=== PATIENT | female | born 1935 | race Caucasian/White ===

== ENCOUNTER → 2017-02-02 | Outpatient (CLI) | payer MEDICARE ==
--- NOTE | 2017-02-02 18:25 | US ---
EXAMINATION TYPE: US carotid duplex BILAT DATE OF EXAM: 02/02/2017 COMPARISON: 03/28/2015 CLINICAL HISTORY: I65.23 Occlusion and stenosis of bilateral carotid arteries. Falling EXAM MEASUREMENTS: RIGHT: Peak Systolic Velocity (PSV) cm/sec ----- Right CCA: 49.6 ----- Right ICA: 55.7 ----- Right ECA: 57.5 ICA/CCA ratio: 1.1 RIGHT: End Diastole cm/sec ----- Right CCA: 13.9 ----- Right ICA: 18.2 ----- Right ECA: 0 LEFT: Peak Systolic Velocity (PSV) cm/sec ----- Left CCA: 53.8 ----- Left ICA: 82.4 ----- Left ECA: 53.8 ICA/CCA ratio: 1.5 LEFT: End Diastole cm/sec ----- Left CCA: 13.1 ----- Left ICA: 25.2 ----- Left ECA: 10.9 VERTEBRALS (direction of flow): Right Vertebral: Antegrade Left Vertebral: Antegrade IMPRESSION: There is antegrade flow in the vertebral arteries. Even though elevated velocities were not seen there is evidence for significant plaque in probably 70% stenosis of the mid right internal carotid artery. There is at least 50% stenosis of the left internal carotid artery. There is signific ant plaque and shadowing and luminal evaluation is difficult. There is probably no change compared to old exam. If there is persistent clinical indication MR angiogram or CT angiogram is recommended. Criteria for Assigning % of Stenosis / Diameter reduction (Estimation based on the indirect measurements of the internal carotid artery velocities (ICA PSV). 1. Normal (no stenosis)=ICA PSV < 125 cm/s: ratio < 2.0: ICA EDV<40 cm/s. 2. Less than 50% stenosis=ICA PSV < 125 cm/s: ratio < 2.0: ICA EDV<40 cm/s. 3. 50 to 69% stenosis=ICA PSV of 125 to 230 cm/s: ration 2.0 ? 4.0: ICA EDV 40-100 cm/s. 4. Greater than 70% stenosis to near occlusion= ICA PSV > 230 cm/s: ratio > 4.0: ICA EDV > 100 cm/s. 5. Near occlusion= ICA PSV velocities may be low or undetectable: variable ratio and ICA EDV. 6. Total occlusion=unable to detect flow.
--- NOTE | 2017-02-03 11:18 | ECHOF ---
Referral Reason:I34.0 Nonrheumatic mitral regurgitation MEASUREMENTS -------- HEIGHT: 162.6 cm WEIGHT: 59.0 kg BP: 134/101 RVIDd: 3.1 cm (< 3.3) IVSd: 1.1 cm (0.6 - 1.1) LVIDd: 4.1 cm (3.9 - 5.3) LVPWd: 1.1 cm (0.6 - 1.1) EDV(Teich): 72 ml IVSs: 1.3 cm LVIDs: 2.7 cm LVPWs: 1.4 cm %IVS Thck: 19 % ESV(Teich): 27 ml EF(Teich): 63 % %FS: 34 % SV(Teich): 46 ml LALs A4C: 4.9 cm LAAs A4C: 14.7 cm LAESV A-L A4C: 37 ml LAESV MOD A4C: 41 ml LALs A2C: 5.1 cm LAAs A2C: 12.3 cm LAESV A-L A2C: 25 ml LAESV MOD A2C: 23 ml LAESV(A-L): 31 ml LAESV Index (A-L): 19.13 ml/m Ao Diam: 3.5 cm (2.0 - 3.7) AV Cusp: 1.4 cm (1.5 - 2.6) LA Diam: 3.6 cm (2.7 - 3.8) MV EXCURSION: 17.701 mm (> 18.000) MV EF SLOPE: 50 mm/s (70 - 150) EPSS: 0.9 cm MV E Parveen: 0.70 m/s MV DecT: 344 ms MV Dec Cache: 2.0 m/s MV A Parveen: 1.15 m/s MV E/A Ratio: 0.61 MV PHT: 100 ms E/E': 13.19 E': 0.05 m/s LVOT Vmax: 0.96 m/s LVOT maxP.72 mmHg AV Vmax: 1.13 m/s AV maxP.09 mmHg TR Vmax: 1.32 m/s TR maxP.95 mmHg RAP: 5.00 mmHg RVSP: 11.95 mmHg FINDINGS -------- Sinus rhythm. This was a technically adequate study. Overall left ventricular systolic function is normal with, an EF between 55 - 60 %. The right ventricle is normal in size and function. Normal LA size by volume 22+/-6 ml/m2. The right atrium is normal in size. Aortic valve is trileaflet and is mildly thickened. Trace amount of aortic regurgitation. There is no evidence of aortic stenosis. The mitral valve leaflets are mildly thickened. There is trace mitral regurgitation. Trace tricuspid regurgitation present. There is no evidence of pulmonary hypertension. The right ventricular systolic pressure, as measured by Doppler, is 11.95mmHg. The pulmonic valve was not well visualized. The aortic root size is normal. Normal inferior vena cava with normal inspiratory collapse consistent with estimated right atrial pressure of 5 mmHg. The pericardium is normal. There is no pericardial effusion. CONCLUSIONS -------- 1. Sinus rhythm. 2. There is no evidence of pulmonary hypertension. 3. The right ventricular systolic pressure, as measured by Doppler, is 11.95mmHg. 4. The pulmonic valve was not well visualized. 5. The aortic root size is normal. 6. There is no pericardial effusion. 7. This was a technically adequate study. 8. Overall left ventricular systolic function is normal with, an EF between 55 - 60 %. 9. Normal LA size by volume 22+/-6 ml/m2. 10. Aortic valve is trileaflet and is mildly thickened. 11. Trace amount of aortic regurgitation. 12. The mitral valve leaflets are mildly thickened. 13. There is trace mitral regurgitation. 14. Trace tricuspid regurgitation present. ENVIRONMENTAL ENGINEERING INTERN: Johnathan Simpson RDCS
== END | disposition home or self-care (01) ==
LOC: RADECHMAIN 16:51
PROVIDERS: ATTEND Internal Medicine
DX: I65.23 Occlusion and stenosis of bilateral carotid arteries (principal); I34.0 Nonrheumatic mitral (valve) insufficiency
CPT/HCPCS: 93306; 93880

== ENCOUNTER → 2017-03-19 | Outpatient (CLI) | payer MEDICARE ==
[2017-03-19 16:43] LABS: Blood Urea Nitrogen 13 mg/dL (7-17); Non-African American GFR(MDRD) >60 (>60 ml/min/1.73 sqM)
--- NOTE | 2017-03-19 18:35 | CT ---
EXAMINATION TYPE: CT angio neck DATE OF EXAM: 03/19/2017 HISTORY: Follow up US COMPARISON: NONE CT DLP: 485 mGycm. Automated Exposure Control for Dose Reduction was Utilized. TECHNIQUE: CTA scan of the neck is performed with IV Contrast, patient injected with 65 mL of Omnipa que 350, axial images are obtained, coronal and sagittal reformatted images are reviewed. Three-D rec onstructed images are created on an independent workstation and reviewed. FINDINGS: There are densely calcified mediastinal lymph nodes. There is normal branching pattern of the great v essels on the aortic arch. There is aneurysm of the ascending aorta measures 4.5 cm. There is no sign of dissection. There is arterial flow in both vertebral arteries. There is patency of the vertebrobasilar artery sys tem. There is moderate plaque at the carotid artery bifurcations. There is estimated lumen narrowing of 25 % at the origin right internal carotid artery. On the left side there is a short segment of significant stenosis of 75% lumen narrowing. There is bi lateral patency of the external carotid arteries. There is no evidence of pharyngeal mass. Epiglottis is normal. There is no evidence of arterial disse ction. CONCLUSION: 4.5 cm aneurysm of ascending aorta. Atherosclerotic vascular disease. 25% stenosis of the origin right internal carotid artery. 75% stenosis origin of the left internal carotid artery. Normal vertebral arteries.
== END | disposition home or self-care (01) ==
LOC: RADCTMAIN 16:06
PROVIDERS: ATTEND Internal Medicine Geriatric Medicine
DX: I65.23 Occlusion and stenosis of bilateral carotid arteries (principal); I71.2 Thoracic aortic aneurysm, without rupture; I70.90 Unspecified atherosclerosis
CPT/HCPCS: 82565; 84520; 70498; 36415; Q9967

== ENCOUNTER 2017-04-29 07:44 | Emergency (ER) | payer MEDICARE ==
[2017-04-29 07:59] VITALS: RESP 18
--- NOTE | 2017-04-29 08:04 | ED ---
Neuro HPI - General Stated Complaint: CVA Time Seen by Provider: 04/29/17 07:44 Source: EMS, RN notes reviewed, old records reviewed Mode of arrival: EMS - History of Present Illness Is the patient presenting with stroke symptoms?: Yes Initial Comments: Is an 81-year-old female who is brought in by EMS for evaluation after falling twice this morning apparently while trying on the bathroom. Apparently staff help her the first I do not see any deficits this time when she was helped up and noticed some facial drooping and some left arm weakness sometime around 6 AM this morning. She did have a small laceration to the left temporal scalp she is not on any reported blood thinners. Patient does have some dementia past medical history was not immediately available though she from past records is having history of UTI, osteoporosis, rhabdomyolysis with leg weakness and she recently had a CT angiogram of the neck which demonstrated a 4.5 cm aneurysm of the descending aorta 25% stenosis of the origin of the right internal carotid artery and 75% stenosis of the left internal carotid artery. Normal vertebral arteries. Patient was brought in by EMS with a c-collar. The crew reported left arm drift left facial droop possibly some left leg weakness - Related Data Home Medications: Home Medications Medication Instructions Recorded Confirmed Aspirin 81 mg PO DAILY 03/26/15 03/26/15 Cholecalciferol [Vitamin D3] 1,000 unit PO DAILY 03/26/15 03/26/15 Tolterodine [Detrol] 2 mg PO BID 03/26/15 03/26/15 Zinc 50 mg PO DAILY 03/26/15 03/26/15 Previous Rx's Medication Instructions Recorded Atorvastatin [Lipitor] 20 mg PO HS #0 03/29/15 Levofloxacin [Levaquin] 500 mg PO DAILY #5 tab 03/29/15 Metoprolol Succinate (ER) [Toprol 25 mg PO DAILY tab.er.24h 03/29/15 XL] Allergies/Adverse Reactions: Allergies Allergy/AdvReac Type Severity Reaction Status Date / Time No Known Allergies Allergy Verified 04/29/17 07:59 Review of Systems ROS Statement: Those systems with pertinent positive or pertinent negative responses have been documented in the HPI. ROS Other: All systems not noted in ROS Statement are negative. General Exam - General Exam Comments Initial Comments: This is a well-developed well-nourished awake alert female she does have a cervical collar in place patient was awake alert oriented history Jeb Coma Scale of 15. Limitations: altered mental status General appearance: alert, in no apparent distress Head exam: Present: normocephalic, other (Small superficial abrasion seen over the left temporal scalp anterior aspect no active bleeding no step-off no crepitation. On the right ear is evidence of a contusion over the right temporal frontal scalp. No step-off no crepitation.) Eye exam: Present: normal appearance, PERRL, EOMI. Absent: scleral icterus, conjunctival injection, periorbital swelling ENT exam: Present: normal oropharynx, TM's normal bilaterally, other (Some evidence of left facial asymmetry. The cervical collar does distort the patient 's facial features somewhat) Neck exam: Present: normal inspection, other (Cervical collar will remain at this time). Absent: tenderness, lymphadenopathy Respiratory exam: Present: normal lung sounds bilaterally. Absent: respiratory distress, wheezes, rales, rhonchi, stridor Cardiovascular Exam: Present: regular rate, normal rhythm, normal heart sounds. Absent: systolic murmur, diastolic murmur, rubs, gallop, clicks GI/Abdominal exam: Present: soft, normal bowel sounds. Absent: distended, tenderness, guarding, rebound, rigid Rectal exam: Present: deferred Extremities exam: Present: normal capillary refill, other (Superficial abrasion seen over the left anterior sargent no active bleeding no suture repair indicated. There is a slight amount of weakness towards the left lower extremity to gravity however the push pull the foot is normal and equal bilaterally). Absent : full ROM, tenderness Back exam: Present: normal inspection, full ROM. Absent: tenderness, CVA tenderness (R), CVA tenderness (L) Neurological exam: Present: alert, other (Mild evidence a left facial asymmetry) Psychiatric exam: Present: normal affect, normal mood Skin exam: Present: warm, dry, normal color. Absent: intact Stroke MDM - Lab Data Result diagrams: 04/29/17 07:55 04/29/17 07:55 Lab Results 04/29/17 04/29/17 04/29/17 Range/Units 07:55 07:55 07:55 WBC 8.5 (3.8-10.6) k/uL RBC 4.85 (3.80-5.40) m/uL Hgb 15.3 (11.4-16.0) gm/dL Hct 46.3 H (34.0-46.0) % MCV 95.5 (80.0-100.0) fL MCH 31.5 (25.0-35.0) pg MCHC 33.0 (31.0-37.0) g/dL RDW 13.5 (11.5-15.5) % Plt Count 184 (150-450) k/uL Neutrophils % (Manual) 75 % Band Neutrophils % 4 % Lymphocytes % (Manual) 11 % Monocytes % (Manual) 9 % Eosinophils % (Manual) 1 % Neutrophils # (Manual) 6.70 (1.3-7.7) k/uL Lymphocytes # (Manual) 0.94 L (1.0-4.8) k/uL Monocytes # (Manual) 0.77 (0-1.0) k/uL Eosinophils # (Manual) 0.09 (0-0.7) k/uL Nucleated RBCs 0 (0-0) /100 WBC Manual Slide Review Performed RBC Morphology Normal PT (9.0-12.0) sec INR (<1.2) APTT (22.0-30.0) sec Sodium 141 (137-145) mmol/L Potassium 3.4 L (3.5-5.1) mmol/L Chloride 101 (98-107) mmol/L Carbon Dioxide 29 (22-30) mmol/L Anion Gap 11 mmol/L BUN 19 H (7-17) mg/dL Creatinine 0.66 (0.52-1.04) mg/dL Est GFR (MDRD) Af Amer >60 (>60 ml/min/1.73 sqM) Est GFR (MDRD) Non-Af >60 (>60 ml/min/1.73 sqM) Glucose 135 H (74-99) mg/dL Calcium 9.0 (8.4-10.2) mg/dL Total Bilirubin 0.9 (0.2-1.3) mg/dL AST 33 (14-36) U/L ALT 34 (9-52) U/L Alkaline Phosphatase 98 (38-126) U/L Total Creatine Kinase 389 H (30-135) U/L CK-MB (CK-2) 3.3 H* (0.0-2.4) ng/mL CK-MB (CK-2) Rel Index 0.8 Troponin I <0.012 (0.000-0.034) ng/mL Total Protein 7.0 (6.3-8.2) g/dL Albumin 3.9 (3.5-5.0) g/dL 04/29/17 Range/Units 07:55 WBC (3.8-10.6) k/uL RBC (3.80-5.40) m/uL Hgb (11.4-16.0) gm/dL Hct (34.0-46.0) % MCV (80.0-100.0) fL MCH (25.0-35.0) pg MCHC (31.0-37.0) g/dL RDW (11.5-15.5) % Plt Count (150-450) k/uL Neutrophils % (Manual) % Band Neutrophils % % Lymphocytes % (Manual) % Monocytes % (Manual) % Eosinophils % (Manual) % Neutrophils # (Manual) (1.3-7.7) k/uL Lymphocytes # (Manual) (1.0-4.8) k/uL Monocytes # (Manual) (0-1.0) k/uL Eosinophils # (Manual) (0-0.7) k/uL Nucleated RBCs (0-0) /100 WBC Manual Slide Review RBC Morphology PT 12.8 H (9.0-12.0) sec INR 1.3 H (<1.2) APTT 26.1 (22.0-30.0) sec Sodium (137-145) mmol/L Potassium (3.5-5.1) mmol/L Chloride (98-107) mmol/L Carbon Dioxide (22-30) mmol/L Anion Gap mmol/L BUN (7-17) mg/dL Creatinine (0.52-1.04) mg/dL Est GFR (MDRD) Af Amer (>60 ml/min/1.73 sqM) Est GFR (MDRD) Non-Af (>60 ml/min/1.73 sqM) Glucose (74-99) mg/dL Calcium (8.4-10.2) mg/dL Total Bilirubin (0.2-1.3) mg/dL AST (14-36) U/L ALT (9-52) U/L Alkaline Phosphatase (38-126) U/L Total Creatine Kinase (30-135) U/L CK-MB (CK-2) (0.0-2.4) ng/mL CK-MB (CK-2) Rel Index Troponin I (0.000-0.034) ng/mL Total Protein (6.3-8.2) g/dL Albumin (3.5-5.0) g/dL - NIH Stroke Scale 1a. Level of Consciousness: (0) alert 1b. LOC Questions: (0) answers correctly 1c. LOC Commands: (0) performs tasks correctly 2. Best Gaze: (0) normal 3. Visual: (0) no visual loss 4. Facial Palsy: (1) minor paralysis 5a. Motor Arm Left: (0) no drift 5b. Motor Arm Right: (0) no drift 6a. Motor Leg Left: (1) drift 6b. Motor Leg Right: (1) drift 7. Limb Ataxia: (0) absent 8. Sensory: (0) normal 9. Best Language: (0) no aphasia 10. Dysarthria: (0) normal 11. Extinction/Inattention: (0) no abnormality - Thrombolytic Inclusion/Exclusion Thrombolytic Contraindications: Hx of ICH/AVM/Aneurysms - Medical Decision Making The patient remains awake alert oriented 3. Patient does have evidence of a subdural hematoma on the right. I did discuss this with Dr. Landon from radiology. Patient will be transferred to [facility] I did discuss the case with patient has some questionable left facial asymmetry generalized weakness of her lower extremities. The patient will be sent for evaluation subdural hematoma . - EKG Data -: EKG Interpreted by Me EKG shows normal: sinus rhythm (Sinus rhythm rate 62. Interval 196 QRS duration 136 QT/QTC of 490/497 evidence a right bundle-branch block old inferior changes) Past Medical History Past Medical History: COPD, GI Bleed, Hyperlipidemia, Hypertension, Osteoarthritis (OA) Additional Past Medical History / Comment(s): sleep disorder diverticulitis, murmur, varicose veins, over active bladder, shingles 2013, poor circulation, constipation, History of Any Multi-Drug Resistant Organisms: None Reported Past Surgical History: Appendectomy Additional Past Surgical History / Comment(s): 4 d & c miscarriages ,coccyx bone removed, colonoscopy/polypectomy(benign). Past Anesthesia/Blood Transfusion Reactions: No Reported Reaction Past Psychological History: Depression Additional Psychological History / Comment(s): pt lives alone- 4 years ago,occ has some mild deprerssion d/t missing him.appeteite last 2 weeeks decreased not sure if any wt loss, and not sleeping very good Smoking Status: Former smoker Past Alcohol Use History: None Reported Additional Past Alcohol Use History / Comment(s): smoked x 60 years 2 ppd, quit 2006 Past Drug Use History: None Reported - Past Family History Father Family Medical History: Hypertension Mother Additional Family Medical History / Comment(s): parkinsons Course Vital Signs 04/29/17 04/29/17 04/29/17 07:48 08:00 08:30 Temperature 97.3 F L Pulse Rate 62 64 60 Respiratory 18 18 18 Rate Blood Pressure 156/68 144/66 147/63 O2 Sat by Pulse 93 L 96 96 Oximetry - Reevaluation(s) Reevaluation #1: 04/29/17 08:03 There does seem to be improvement in the patient's neuro status since the original encounter. There appears be no left arm drift at this time also some questionable decreased ability to raise left leg. Reevaluation #2: 04/29/17 09:03 Reevaluation after return from CAT scan shows paced be awake alert oriented 3 Reevaluation #3: 04/29/17 09:12 Reevaluation patient was notified and she'll be transferred to [facility]. Reevaluation questionable slight asymmetry in the left face. Critical Care Time Critical Care Time: Yes Critical Care Time: 31 minutes of critical care time includes initial presentation monitoring the EMS run and discussed with paramedics history physical labs x-rays. Multiple reevaluation of the patient. Discussed with the radiologist. Discussion with the receiving facility. Reviewing old charting that was available. Documentation the above. Disposition Clinical Impression: Fall, Subdural hematoma, Contusion of scalp, Scalp abrasion, Leg abrasion Disposition: OTHER INSTITUTION NOT DEFINED Referrals: Susana Biswas MD [Primary Care Provider] - 1-2 days - Out of Hospital Transfer - Req. Specs Out of Hospital Transfer - Requested Specifics: Other Emergency Center
[2017-04-29 08:12] LABS: CH 31.7; CHCM 33.3; HCT 46.3 % (34.0-46.0); HGB 15.3 gm/dL (11.4-16.0); Immature Gran Flag Slight; MCH 31.5 pg (25.0-35.0); MCV 95.5 fL (80.0-100.0); Mean Platelet Volume 7.6; RBC 4.85 m/uL (3.80-5.40); RDW 13.5 % (11.5-15.5); WBC 8.5 k/uL (3.8-10.6); WBC (Perox) 8.74
[2017-04-29 08:18] LABS: Add Differential Manual Differential
[2017-04-29 08:22] LABS: INR 1.3 (<1.2); Partial Thromboplastin Time 26.1 sec (22.0-30.0); Prothrombin Time 12.8 sec (9.0-12.0)
[2017-04-29 08:23] LABS: ALT 34 U/L (9-52); AST 33 U/L (14-36); Alkaline Phosphatase 98 U/L (38-126); Anion Gap 11 mmol/L; Blood Urea Nitrogen 19 mg/dL (7-17); Carbon Dioxide 29 mmol/L (22-30); Chloride 101 mmol/L (98-107); Glucose 135 mg/dL (74-99); Non-African American GFR(MDRD) >60 (>60 ml/min/1.73 sqM); Potassium 3.4 mmol/L (3.5-5.1); Sodium 141 mmol/L (137-145); Total Bilirubin 0.9 mg/dL (0.2-1.3)
[2017-04-29 08:24] LABS: Band Neutrophils % 4 %; Manual Review Performed; Nucleated Red Blood Cells 0 /100 WBC (0-0); RBC Morphology Normal; Total Cells Counted 100
[2017-04-29 08:35] LABS: Creatine Kinase 389 U/L (30-135)
[2017-04-29 08:47] LABS: Troponin I <0.012 ng/mL (0.000-0.034)
--- NOTE | 2017-04-29 08:49 | CT ---
EXAMINATION TYPE: CT brain cspine wo con DATE OF EXAM: 04/29/2017 COMPARISON: No prior CT. MRI brain 10/28/2015 is reviewed. HISTORY: Fall, laceration right parietal region CT DLP: 1581 mGycm, Automated exposure control for dose reduction was used. CONTRAST: None CT of the brain is performed utilizing 3 mm thick sections through the posterior fossa and 3 mm thick sections through the remaining calvarium. Study is performed within 24 hours of arrival to the hospital. There is soft tissue swelling over the right frontal parietal region supraorbital calvarium. No under lying fracture is evident. There is hyperdensity along the right parietal region. Greatest thickness is 0.8 cm. This extends fr om the right middle cranial fossa to nearly the occipital region. Minimal mass effect is on the adjac ent brain. No midline shift is evident. No subfalcine herniation is evident. Periventricular appearan ce is slightly atrophic. No temporal horn dilatation is evident. Minimal effacement of the sulci of t he right middle lobe is present. No mass lesion is evident. No acute infarcts are evident. There appears to be some periventricular white matter hypodensity, li mary jane on the basis of chronic white matter ischemic changes. Mild mucosal thickening is within ethmoid air cells and right maxillary sinus. Small air-fluid level may be within the right maxillary sinus. This could be posttraumatic or acute sinusitis. IMPRESSIONS: 1. Acute right subdural hematoma. 2. Superficial soft tissue swelling right supraorbital frontal parietal region. 3. Mild age-related atrophy 4. Report was called to the emergency room Dr. Vargas by Dr. Landon by telephone at [id number] hours [id number]. 5. Acute right maxillary sinusitis versus posttraumatic fluid CT cervical spine. COMPARISON: None CT of the cervical spine is performed in the axial plane at 2 mm thick sections. Reconstructed image s in the coronal, and sagittal plane are reviewed on the computer. No acute fractures are evident. Very minimal grade 1 spondylolisthesis of C3 on C4 may be present. There is loss of disc height to th is level. No spinal canal stenosis or neural foraminal stenosis present. C4-5: Uncovertebral joint hypertrophy is present without foraminal stenosis. Facet hypertrophy is pre sent greater on the left. No spinal canal stenosis present. C5-6: There is loss of disc height is level. Uncovertebral joint hypertrophy is contributing to mild bilateral foraminal narrowing. No AP spinal canal stenosis present. C6-7: Loss of disc height is present. No spinal canal stenosis or neural foraminal stenosis present. There is loss of disc height through the cervical spine greatest at C3-4 C5-6 and C6-7. Vertebral body heights are preserved. No spinal canal stenosis is evident. Note is made of emphysematous changes within the lung apices. IMPRESSIONS: 1. No acute osseous abnormality cervical spine. 2. Degenerative disc changes. 3. Very minimal grade 1 spondylolisthesis of C3 anteriorly on C4.
[2017-04-29 08:50] LABS: Creatine Kinase MB 3.3 ng/mL (0.0-2.4)
[2017-04-29 09:04] LABS: Appearance,Urine Cloudy (Clear); Bacteria,Urine Few /hpf; Bilirubin,Urine Negative (Negative); Glucose,Urine (UA) Negative (Negative); Ketones,Urine 2+ (Negative); Leukocyte Esterase,Urine Trace (Negative); Mucus,Urine Occasional /hpf; Nitrite,Urine Negative (Negative); PH, Urine 5.5 (5.0-8.0); Particle Count 6267; Protein,Urine 1+ (Negative); RBC,Urine 29 /hpf (0-5); Specific Gravity,Urine 1.022 (1.001-1.035); Squamous Epithelial Cell,Urine 5 /hpf (0-4); UA Billing (MACRO vs. MICRO) MICRO; WBC,Urine 9 /hpf (0-5)
[2017-04-29] MEDS ORDERED: DIPH,PERTUS(ACELL)TETVAC-LF 0.5 ML VIAL IM ONE (09:10)
--- NOTE | 2017-04-29 09:28 | XR ---
EXAMINATION TYPE: XR chest 2V DATE OF EXAM: 04/29/2017 COMPARISON: Prior chest x-ray 03/26/2015 HISTORY: Altered mental status, abnormal chest x-ray TECHNIQUE: Frontal and lateral views of the chest are obtained on 3 images. FINDINGS: There is no pleural effusion, or pneumothorax seen. Basilar scarring persists. The cardiac silhouette size is stable, heart may be enlarged or accentuated appearance due to rotation, there is an underlying scoliosis. Evidence of old granulomatous disease again noted. Prominent lung volumes compatible with emphysema, COPD. The aorta is dense and aneurysmal. The osseous structures are intact . IMPRESSION: No acute cardiopulmonary process. Ascending aortic aneurysm. Emphysema.
[2017-04-29 09:36] VITALS: BP 154/71; PULSE 58; TEMP 98
== END 2017-04-29 10:03 | disposition other institution (70) ==
LOC: EC 07:44
DX: S06.5X9A Traumatic subdural hemorrhage with loss of consciousness of unspecified duration, initial encounter (principal); S00.03XA Contusion of scalp, initial encounter; S80.812A Abrasion, left lower leg, initial encounter; R40.2410 Glasgow coma scale score 13-15, unspecified time; I10 Essential (primary) hypertension; Z23 Encounter for immunization; Z87.891 Personal history of nicotine dependence; Z79.82 Long term (current) use of aspirin; Z79.899 Other long term (current) drug therapy; Y92.009 Unspecified place in unspecified non-institutional (private) residence as the place of occurrence of the external cause; W19.XXXA Unspecified fall, initial encounter
CPT/HCPCS: 36415; 70450; 71020; 72125; 80053; 81001; 82550; 82553; 84484; 85025; 85610; 85730; 90471; 90715; 93005; 99285

== ENCOUNTER → 2017-06-30 | Outpatient (CLI) | payer MEDICARE ==
[2017-06-30 09:23] LABS: HCT 42.3 % (34.0-46.0); HGB 13.8 gm/dL (11.4-16.0); MCH 30.8 pg (25.0-35.0); MCHC 32.5 g/dL (31.0-37.0); MCV 94.8 fL (80.0-100.0); Mean Platelet Volume 6.9; Platelet Count 290 k/uL (150-450); RBC 4.46 m/uL (3.80-5.40); RDW 12.9 % (11.5-15.5); WBC 4.2 k/uL (3.8-10.6)
[2017-06-30 10:00] LABS: ALT 34 U/L (9-52); AST 23 U/L (14-36); Albumin 3.5 g/dL (3.5-5.0); Alkaline Phosphatase 81 U/L (38-126); Anion Gap 9 mmol/L; Blood Urea Nitrogen 13 mg/dL (7-17); Calcium 9.5 mg/dL (8.4-10.2); Carbon Dioxide 34 mmol/L (22-30); Chloride 104 mmol/L (98-107); Glucose 96 mg/dL (74-99); Potassium 4.4 mmol/L (3.5-5.1); Sodium 147 mmol/L (137-145); Total Bilirubin 0.4 mg/dL (0.2-1.3); Total Protein 6.2 g/dL (6.3-8.2)
[2017-06-30 10:16] LABS: T4, Free (Free Thyroxine) 1.19 ng/dL (0.78-2.19)
== END | disposition home or self-care (01) ==
LOC: LABWHC1 08:26
PROVIDERS: ATTEND Psychiatry & Neurology Neurology
DX: I69.354 Hemiplegia and hemiparesis following cerebral infarction affecting left non-dominant side (principal); R53.1 Weakness
CPT/HCPCS: 36415; 80053; 82607; 83090; 84439; 84443; 84481; 85027

== ENCOUNTER → 2017-07-15 | Outpatient (CLI) | payer MEDICARE ==
--- NOTE | 2017-07-15 14:20 | MR ---
EXAMINATION TYPE: MR brain wo/w con DATE OF EXAM: 07/15/2017 COMPARISON: CT brain May 24, 2017. MRI brain October 08, 2015. HISTORY: TIA per order. Problems with memory or forgetfulness per patient. TECHNIQUE: Multiplanar, multisequence images of the brain and brainstem is performed without and with IV contras t, utilizing 5.5 mL intravenous Gadavist . FINDINGS: Diffusion weighted images demonstrate no evidence of a recent infarct or other diffusion ab normality. There is no worrisome extra-axial fluid collection. There is diffuse ventricular and sulc al prominence consistent with diffuse cerebral atrophy. Ventricular size is stable from prior studies . There are multifocal areas of T2 hyperintensity seen throughout the superficial, periventricular, a nd deep white matter redemonstrated. Midline structures demonstrate normal morphology. The craniocervical junction appears within normal limits. Post contrast images demonstrate no abnormal enhancement. The dural venous sinuses appear pa tent. The visualized sinuses are clear and the globes are intact. Interval resolution of partial opac ification right mastoid air cells. IMPRESSION: 1. No evidence of a recent infarct. 2. There is background moderate diffuse cerebral atrophy and moderate to severe chronic small vessel ischemic change redemonstrated. There is no significant change from prior MRI.
== END | disposition home or self-care (01) ==
LOC: RADMRIMAIN 13:10
PROVIDERS: ATTEND Psychiatry & Neurology Pain Medicine
DX: G31.9 Degenerative disease of nervous system, unspecified (principal); I67.82 Cerebral ischemia
CPT/HCPCS: 70553; A9581

== ENCOUNTER 2017-09-22 23:13 | Emergency (ER) | payer MEDICARE ==
[~2017-09-22 23:13] MED LIST: SODIUM CHLORIDE 0.9% 1,000 ML BAG ONE
[2017-09-23 07:34] LABS: ALT 22 U/L (9-52); AST 22 U/L (14-36); Alkaline Phosphatase 107 U/L (38-126); Anion Gap 12 mmol/L; Blood Urea Nitrogen 18 mg/dL (7-17); Calcium 9.6 mg/dL (8.4-10.2); Carbon Dioxide 31 mmol/L (22-30); Chloride 103 mmol/L (98-107); Glucose 72 mg/dL (74-99); Sodium 146 mmol/L (137-145); Total Bilirubin 0.5 mg/dL (0.2-1.3); Total Protein 7.1 g/dL (6.3-8.2)
[2017-09-23 07:38] LABS: Basophils % (A) 1 %; Eosinophils # (A) 0.1 k/uL (0-0.7); Eosinophils % (A) 2 %; HCT 39.8 % (34.0-46.0); HGB 13.4 gm/dL (11.4-16.0); Lymphocytes # (A) 1.5 k/uL (1.0-4.8); Lymphocytes % (A) 21 %; MCH 30.5 pg (25.0-35.0); MCHC 33.7 g/dL (31.0-37.0); MCV 90.7 fL (80.0-100.0); Mean Platelet Volume 6.8; Monocytes # (A) 0.4 k/uL (0-1.0); Monocytes % (A) 6 %; Neutrophils # (A) 4.8 k/uL (1.3-7.7); Neutrophils % (A) 69 %; Platelet Count 264 k/uL (150-450); RBC 4.39 m/uL (3.80-5.40); RDW 13.7 % (11.5-15.5); WBC 6.9 k/uL (3.8-10.6)
[2017-09-23 07:39] LABS: Appearance,Urine Cloudy (Clear); Bacteria,Urine Many /hpf; Bilirubin,Urine Negative (Negative); Blood,Urine Negative (Negative); Color,Urine Light Yellow; Glucose,Urine (UA) Negative (Negative); Ketones,Urine Negative (Negative); Leukocyte Esterase,Urine Small (Negative); Mucus,Urine Rare /hpf; Nitrite,Urine Negative (Negative); PH, Urine 6.5 (5.0-8.0); Protein,Urine Negative (Negative); RBC,Urine 1 /hpf (0-5); Specific Gravity,Urine 1.009 (1.001-1.035); Squamous Epithelial Cell,Urine 20 /hpf (0-4); Urobilinogen,Urine <2.0 mg/dL (<2.0); WBC,Urine 5 /hpf (0-5)
--- NOTE | 2017-09-23 12:54 | CT ---
EXAMINATION TYPE: CT brain braulio weldon DATE OF EXAM: 09/23/2017 COMPARISON: 05/24/2017 HISTORY: Fall. Headache. Neck pain. CT DLP: mGycm Automated exposure control for dose reduction was used. TECHNIQUE: CT scan of the head and cervical spine are performed without contrast. FINDINGS: There is diffuse cerebral cortical atrophy. There is patchy hypodensity in the periventri cular white matter. There is no mass effect nor midline shift. There is no sign of intracranial hemor rhage. The calvarium is intact. Cervical vertebra have fairly normal alignment. There is some narrowing of the disc spaces at C3-4 C5 -6 C6-7 with mild spurring of the endplates. Facet joints are intact. The skull base appears intact. There is no evidence of a fracture. IMPRESSION: Cerebral atrophy and chronic small vessel ischemia. No acute abnormality. No change. Spondylotic changes in the cervical spine. No fracture. No change.
== END 2017-09-23 01:31 | disposition home or self-care (01) ==
LOC: EC 23:13
DX: S00.81XA Abrasion of other part of head, initial encounter (principal); F03.90 Unspecified dementia, unspecified severity, without behavioral disturbance, psychotic disturbance, mood disturbance, and anxiety; F32.9 Major depressive disorder, single episode, unspecified; R41.82 Altered mental status, unspecified; W05.0XXA Fall from non-moving wheelchair, initial encounter
CPT/HCPCS: 36415; 70450; 72125; 80053; 81001; 85025; 96360; 99285